=== PATIENT | female | born 1955 | race Caucasian/White ===

== ENCOUNTER → 2018-11-22 | Outpatient (CLI) | payer BC | LOC: M WUC 14:46 | PROVIDERS: ATTEND Internal Medicine Endocrinology, Diabetes & Metabolism | DX: E06.3 Autoimmune thyroiditis (principal) ==

== ENCOUNTER → 2019-11-20 | Outpatient (CLI) | payer BC | LOC: M WUC 10:01 | PROVIDERS: ATTEND Internal Medicine Endocrinology, Diabetes & Metabolism | DX: E06.3 Autoimmune thyroiditis (principal) ==

== ENCOUNTER → 2020-11-25 | Outpatient (REF) | payer BC | LOC: M SFHCWAGY 17:11 | PROVIDERS: ATTEND Advanced Practice Midwife | DX: Z12.4 Encounter for screening for malignant neoplasm of cervix (principal) ==

== ENCOUNTER → 2024-07-21 | Outpatient (CLI) | payer MEDICARE ==
[~2024-07-21] MED LIST: LEVO100T5; ROSU5TAB49
== END ==
LOC: M WHC 08:49
DX: Z13.220 Encounter for screening for lipoid disorders (principal); Z79.811 Long term (current) use of aromatase inhibitors

== ENCOUNTER → 2024-11-10 | Outpatient (REF) | payer MEDICARE | LOC: M SFHCWAGY 13:09 | PROVIDERS: ATTEND Specialist | DX: Z01.419 Encounter for gynecological examination (general) (routine) without abnormal findings (principal) ==